=== PATIENT | female | born 1995 | race Caucasian/White ===

== ENCOUNTER 2021-07-08 00:08 | Observation (INO) | payer OTHER ==
[2021-07-08] MEDS ORDERED: IV RINGERS,LACTATED 1000ML 1,000 ML IV PRN (00:30)
[2021-07-08 00:55] LABS: BILIRUBIN,URINE NEGATIVE (NEG); CLARITY,URINE CLEAR; COLOR,URINE YELLOW; NITRITE,URINE NEGATIVE (NEG); PROTEIN,URINE NEGATIVE (NEG-TRACE)
[2021-07-08 01:05] LABS: BACTERIA,URINE 0 /HPF (0-FEW); RBC,URINE RARE /HPF (0-2)
== END 2021-07-08 03:40 | disposition home or self-care (01) ==
LOC: 3 SO LND 00:08
PROVIDERS: ADMIT Obstetrics & Gynecology; ATTEND Obstetrics & Gynecology
DX: Z04.3 Encounter for examination and observation following other accident (principal); Z3A.25 25 weeks gestation of pregnancy; W18.09XA Striking against other object with subsequent fall, initial encounter; Y93.9 Activity, unspecified; Y92.89 Other specified places as the place of occurrence of the external cause; Y99.8 Other external cause status
CPT/HCPCS: 59025; 81001; 96360; G0378; G0379; J7120